=== PATIENT | female | born 1975 | race Caucasian/White ===

== ENCOUNTER 2018-11-06 15:20 | Emergency (ER) | payer BC ==
[2018-11-06 15:29] VITALS: BP 165/83
--- NOTE | 2018-11-06 16:23 | PHYS DOC ---
Past History Past Medical History: Asthma Past Surgical History: Cholecystectomy Alcohol Use: None Drug Use: None Adult General Chief Complaint Chief Complaint: SHORTNESS OF BREATH HPI HPI 42-year-old female presents with shortness of breath. Patient has a history of asthma. She has been using her albuterol sulfate multiple times a day the last 3 days. She can feel that she is wheezing. It is been getting worse despite her treatments. Patient is a smoker. She stopped smoking 2 days ago. She denies fever or chills. No one else in the house is sick. She denies COPD diagnosis. Review of Systems Review of Systems Constitutional: Denies fever or chills [] Eyes: Denies change in visual acuity, redness, or eye pain [] HENT: Denies nasal congestion or sore throat [] Respiratory: Cough with shortness of breath [] Cardiovascular: No additional information not addressed in HPI [] GI: Denies abdominal pain, nausea, vomiting, bloody stools or diarrhea [] : Denies dysuria or hematuria [] Musculoskeletal: Denies back pain or joint pain [] Integument: Denies rash or skin lesions [] Neurologic: Denies headache, focal weakness or sensory changes [] Endocrine: Denies polyuria or polydipsia [] All other systems were reviewed and found to be within normal limits, except as documented in this note. Current Medications Current Medications Current Medications Medications (Trade) Dose Ordered Sig/Cristhian Start Time Stop Time Status Last Admin Dose Admin Albuterol/ Ipratropium (Duoneb) 3 ml 1X ONCE 11/06/18 16:30 11/06/18 16:31 UNV Allergies Allergies Allergies Uncoded Allergies Type Severity Reaction Last Updated Verified tape Allergy Mild 11/06/18 Physical Exam Physical Exam Constitutional: Well developed, well nourished, no acute distress, non-toxic appearance. [] HENT: Normocephalic, atraumatic, bilateral external ears normal, oropharynx moist, no oral exudates, nose normal. [] Eyes: PERRLA, EOMI, conjunctiva normal, no discharge. [] Neck: Normal range of motion, no tenderness, supple, no stridor. [] Cardiovascular:Heart rate regular rhythm, no murmur [] Lungs & Thorax: Bilateral diffuse expiratory wheezing, worse the left.[] Abdomen: Bowel sounds normal, soft, no tenderness, no masses, no pulsatile masses. [] Skin: Warm, dry, no erythema, no rash. [] Back: No tenderness, no CVA tenderness. [] Extremities: No tenderness, no cyanosis, no clubbing, ROM intact, no edema. [] Neurologic: Alert and oriented X 3, normal motor function, normal sensory fun ction, no focal deficits noted. [] Psychologic: Affect normal, judgement normal, mood normal. [] Current Patient Data Vital Signs Vital Signs Date Time Temp Pulse Resp B/P (MAP) Pulse Ox O2 Delivery O2 Flow Rate FiO2 11/06/18 15:29 98.7 95 18 100 Room Air EKG EKG [] Radiology/Procedures Radiology/Procedures [] Impressions: CHEST PA LATERAL History: Shortness of breath. No prior study for comparison. Heart size is not enlarged. Cardiomediastinal and hilar silhouettes are within normal limits. No evidence of pneumothorax. No pleural effusion. No evidence of infiltrate. Bones appear grossly intact. IMPRESSION: No evidence of consolidating infiltrate. Electronically signed by: Sanjiv Bejarano MD (11/06/2018 4:58 PM) [facility] DICTATED AND SIGNED BY: SANJIV BEJARANO MD DATE: 11/06/18 0711 CC: KODI BEARD DO; YAMIL VALENCIA MD ~ Course & Med Decision Making Course & Med Decision Making Pertinent Labs and Imaging studies reviewed. (See chart for details) The patient appears to be having an asthma exacerbation. Her chest x-ray is negative for pneumonia. I have given her a DuoNeb treatment in the ED. I will treat her with prednisone 60 mg for 3 days. The first dose here in the ED. She will continue her albuterol treatments. She is stable for discharge at this time. [] Dragon Disclaimer Dragon Disclaimer This electronic medical record was generated, in whole or in part, using a voice recognition dictation system. Departure Departure: Impression: Primary Impression: Asthma exacerbation Disposition: 01 HOME, SELF-CARE Condition: STABLE Referrals: YAMIL VALENCIA MD (PCP) Patient Instructions: Asthma, Adult, [id number] Scripts Prednisone (PREDNISONE) 20 Mg Tablet 60 MG PO DAILY for asthma exacerbation for 2 Days, #6 TAB Prov: KODI BEARD DO 11/06/18 Problem Qualifiers Primary Impression: Asthma exacerbation Asthma severity: mild Asthma persistence: intermittent Qualified Codes: J45.21 - Mild intermittent asthma with (acute) exacerbation KODI BEARD DO Nov 06, 2018 16:23
[2018-11-06] MEDS ORDERED: IPRATRPIUM/ALBUTEROL 0.5/2.5MG 3 ML NEBU. NEB ONE (16:45)
--- NOTE | 2018-11-06 17:01 | RAD ---
CHEST PA LATERAL History: Shortness of breath. No prior study for comparison. Heart size is not enlarged. Cardiomediastinal and hilar silhouettes are within normal limits. No evidence of pneumothorax. No pleural effusion. No evidence of infiltrate. Bones appear grossly intact. IMPRESSION: No evidence of consolidating infiltrate. Electronically signed by: Sanjiv Bejarano MD (11/06/2018 4:58 PM) [facility]
[2018-11-06] MEDS ORDERED: PRED20TA PO (17:18)
[2018-11-06] MEDS ORDERED: predniSONE 20 MG TABLET ONE (17:21)
[2018-11-06] MEDS ORDERED: predniSONE 20 MG TABLET PO ONE (17:45)
== END 2018-11-06 17:23 | disposition home or self-care (01) ==
LOC: ER 15:20
DX: J45.21 Mild intermittent asthma with (acute) exacerbation (principal); Z88.8 Allergy status to other drugs, medicaments and biological substances; Z87.891 Personal history of nicotine dependence
CPT/HCPCS: 71046; 94640; 99284; J7512; J7620